=== PATIENT | male | born 1990 | race Caucasian/White ===

== ENCOUNTER 2019-05-24 10:45 | Emergency (ER) | payer OTHER, SELFPAY ==
--- NOTE | ~2019-05-24 | CT_ITS ---
EXAMINATION: CT abdomen pelvis wo con EXAM DATE: 05/24/2019 11:19 INDICATION: Left flank pain, nausea. History kidney stones. TECHNIQUE: Spiral CT of the abdomen and pelvis was performed without contrast. Axial, coronal and sag ittal images were reviewed. The dose-length product (DLP) for this examination was 762.50 mGy-cm. T he exposure was tailored according to patient size (auto mA exposure control), and iterative reconstr uction (ASIR) was used as additional dose reduction technique. There is no prior study for compariso n. FINDINGS: There is 5 mm right inferior calyceal stone. There is a 5 mm left ureteropelvic junction st one and a punctate left inferior calyceal stone. No hydronephrosis at present. The prostate is unrem arkable. The bladder is collapsed at time of imaging limiting evaluation. The liver, spleen, adrena l glands and pancreas are unremarkable. Gallbladder is unremarkable. No biliary obstruction. There is no retroperitoneal or pelvic lymphadenopathy. Small umbilical fat-containing hernia. The appendix is normal. The stomach and small bowel are unremarkable. There is expected amount of c olonic stool. No free intraperitoneal gas. The heart is normal in size. There are no pericardial or pleural effusions. The lung bases are unremarkable. The bones are unremarkable. IMPRESSION: 1. Left UPJ 5 mm stone, minimal adjacent inflammation. No hydronephrosis at present. 2. Bilateral nephrolithiasis. Urologist consultants would appreciate KUB as baseline for follow-up, treatment planning. Reviewed, dictated and finalized at location B. IMPRESSION: 1. Left UPJ 5 mm stone, minimal adjacent inflammation. No hydronephrosis at pr esent. 2. Bilateral nephrolithiasis. Urologist consultants would appreciate KUB as baseline for follow-up, treatment planning.
--- NOTE | ~2019-05-24 | XR_ITS ---
EXAMINATION: XR abdomen/kub 1V EXAM DATE: 05/24/2019 11:54 INDICATION: Left UPJ stone. TECHNIQUE: Frontal projection of the upper abdomen, frontal projection lower abdomen/pelvis for inter pretation. Correlation is made to CT same date FINDINGS: Left UPJ 5 mm stone identified, indicated. Similar sized right inferior calyceal stone fredy ntified. Probable identification of punctate left inferior calyceal stone. Nonobstructive bowel gas p attern. There are no osseous abnormalities identified. IMPRESSION: stones identified, indicated. Reviewed, dictated and finalized at location B.
[2019-05-24 10:50] VITALS: BP 145/94; PULSE 77; RESP 18; TEMP 36.6; O2SAT 100
--- NOTE | 2019-05-24 10:53 | ED.MALEGU ---
HPI - Male Genitourinary General Chief complaint: Urogenital-Male <Liliana Bullard PA-C - Last Filed: 05/24/19 13:43> Stated complaint: left flank pain <KATHY Tim Last Filed: 05/24/19 13:43> Time Seen by Provider: 05/24/19 10:49 <KATHY Tim Last Filed: 05/24/19 13:43> Source: patient <KATHY Tim Last Filed: 05/24/19 13:43> Mode of arrival: ambulatory <KATHY Tim Last Filed: 05/24/19 13:43> Limitations: no limitations <KATHY Tim Last Filed: 05/24/19 13:43> History of Present Illness HPI Narrative: A 28 y/o male pt presents to the ED, with c/o constant sharp, achy, lt sided ABD pain that began 30 minutes ago. Pt states he has a hx of kidney stones, and notes that this feels similar. He reports his pain being accompanied with nausea, hot flashes, and diaphoresis. Pt denies fever, back pain, dysuria, or hematuria. He notes seeing a urologist the last time he had a kidney stone, but states that he is unsure who he saw. Pt denies any urology procedures with his previous kidney stones, and notes that he was able to pass them on his own. He denies any significant PMHx, PSHx or any hx of smoking or drug use. Pt reports occasional alcohol use. <KATHY Tmi Last Filed: 05/24/19 13:43> MD Complaint: other (lt sided ABD pain) <KATHY Tim Last Filed: 05/24/19 13:43> Onset (ago): minute(s) (30) <KATHY Tim Last Filed: 05/24/19 13:43> Duration: constant <KATHY Tim Last Filed: 05/24/19 13:43> Location: abdomen (lt side) <KATHY Tim Last Filed: 05/24/19 13:43> Severity: similar to previous episodes <Liliana Bullard PA-C - Last Filed: 05/24/19 13:43> Context: other (hx of kidney stones) <Liliana Bullard PA-C - Last Filed: 05/24/19 13:43> Associated symptoms: Reports nausea/vomiting and other (diaphoresis, hot flashes) <Liliana Bullard PA-C - Last Filed: 05/24/19 13:43> Related Data Allergies/Adverse reactions: Allergies Allergy/AdvReac Type Severity Reaction Status Date / Time No Known Allergies Allergy Verified 05/24/19 10:59 <Liliana Bullard PA-C - Last Filed: 05/24/19 13:43> Review of Systems Review of Systems: All systems reviewed & are unremarkable except as noted in HPI and below <Liliana Bullard PA-C - Last Filed: 05/24/19 13:43> Constitutional: Constitutional: Reports excessive sweating, Denies fever(s) and Reports other (hot flashes) <Liliana Bullard PA-C - Last Filed: 05/24/19 13:43> Gastrointestinal: Gastrointestinal: Reports abdominal pain (lt sided) and Reports nausea <Liliana Bullard PA-C - Last Filed: 05/24/19 13:43> Genitourinary: Genitourinary: Denies hematuria and Denies dysuria <KATHY Tim Last Filed: 05/24/19 13:43> Musculoskeletal: Musculoskeletal: Denies back pain <Liliana Bullard PA-C Last Filed: 05/24/19 13:43> [facility] Past Medical History Medical History: Medical History Kidney stones <Liliana Bullard PA-C - Last Filed: 05/24/19 13:43> Surgical History Surgical History: Surgical History No significant past surgical history <Liliana Bullard PA-C - Last Filed: 05/24/19 13:43> Social History Social History: Social History Smoking status: Never smoker Alcohol intake: current Alcohol use details: occasional Substance use: never Gender identity (if verbalized by the patient): Male <Liliana Bullard PA-C - Last Filed: 05/24/19 13:43> Exam Narrative: Exam Narrative: GENERAL: Well-appearing, obese, and in no acute distress. HEAD: Normocephalic, atraumatic. EYES: EOMI. CHEST: Clear to auscultation. No respiratory distress. No wheezes rales or rhonchi HEA
[2019-05-24] MEDS: ONDANSETRON INJ 4 MG/2 ML VIAL IV PUSH (11:04)
[2019-05-24 11:05] LABS: Basophils Absolute Auto 0.1 K/mm3 (0.0-0.1); Basophils Percent Auto 0.6 % (0.2-1.2); Eosinophils Absolute Auto 0.3 K/mm3 (0-0.3); Hematocrit 43.4 % (42.0-52.0); Hemoglobin 14.9 g/dL (14.0-18.0); Immature Granulocyte Percent A 0.7 % (0-0.5); Lymphocytes Absolute Auto 4.51 K/mm3 (0.9-3.2); Lymphocytes Percent Auto 31.7 % (18.3-44.2); Mean Corpuscular HGB Conc 34.3 g/dl (32-36); Mean Corpuscular Hemoglobin 32.4 pg (26-34); Mean Corpuscular Volume 94.3 fl (80-100); Monocytes Absolute Auto 1.2 K/mm3 (0.1-0.6); Monocytes Percent Auto 8.7 % (2.6-8.5); Neutrophils Percent Auto 56.3 % (45.5-73.1); Platelet Count Result 463 k/mm3 (150-375); Red Cell Distribution Width 13.7 % (11.5-14.5); White Blood Count 14.2 K/mm3 (4.5-10.0)
[2019-05-24] MEDS: MORPHINE SULFATE 4 MG/ML INJ IV PUSH (11:05)
[2019-05-24] MEDS: SODIUM CHLORIDE 0.9% IV 1,000 ML 999 ML IV CONT (11:06)
--- NOTE | 2019-05-24 11:08 | PC.NURSE ---
Patient to CT
[2019-05-24 11:11] LABS: Add Urine Microscopic? YES; Appearance Urine Clear (Clear); Bacteria Urine Trace /hpf; Bilirubin Urine Negative (Negative); Blood Urine 3+ (Negative); Color Urine Yellow (Yellow); Glucose Urine UA Negative (Negative); Ketones Urine Negative (Negative); Leukocyte Esterase Ur Trace LEU/UL (Negative); Mucus Urine Heavy /lpf; Nitrate Urine Negative (Negative); Protein Urine 1+ mg/dL (Negative); RBC Urine >75 /hpf (0-2); Specific Grav Ur 1.028 (1.001-1.035); Squamous Epithelial Cell Urine Rare /hpf (Few); Urobilinogen Urine Negative mg/dL (<2.0)
[2019-05-24 11:18] LABS: Blood Urea Nitrogen 14 mg/dL (9-20); Calcium 9.4 mg/dL (8.4-10.2); Carbon Dioxide 24 mmol/L (22-30); Chloride 104 mmol/L (98-107); Estimated CRCL calculation 179 ml/min; Estimated Glomerular Filt Rate > 60; Glucose 115 mg/dL (75-110); Potassium 4.3 mmol/L (3.4-5.0); Sodium 138 mmol/L (137-145)
[2019-05-24] MEDS: HYDROMORPHONE HCL 1 MG/ML INJ 0.5 MG IV PUSH ×2 (11:34→12:12)
--- NOTE | 2019-05-24 13:16 | WPDURCON ---
Assessment and Plan Assessment and plan (1) Left ureteral calculus: Code(s): N20.1 - Calculus of ureter Status: Acute Assessment and Plan: Left UPJ calculus. Have offered him multiple options of conservative therapy with narcotics and Flomax although he is having a difficult time controlling his pain. The stone is visible and KUB in this lithotripsy may be the best option at this point time. We are looking into insurance coverage of whether can be done as an outpatient. Have also offered a stent placement later today. Patient has a sister who is a nurse at [facility] and would like to have his care to undertaken at that facility. He will let us know what he decides and wants us to do. Urology Consult Note HPI Date Seen: 05/24/19 Time Seen: 13:16 Primary Care Provider: UNKNOWN,DOCTOR Consult Narrative Reason for consult: 5 mm left UPJ calculus Narrative: Simba Maharaj is a 28 year old male who presented to the emergency room with left renal colic. He denies any fevers chills. No other voiding symptoms and no gross hematuria. Evaluation in the emergency room with a CT scan revealed a 5 mm left UPJ calculus. He has some smaller calcifications present in both kidneys also. He was requiring quite a bit of Dilaudid and morphine to get his pain under control. At the time of my evaluation he was resting comfortably. The stone is visible on KUB. Urinalysis has 7-9 white cells. Nitrate negative trace leukocyte esterase. Review of Systems Review of Systems: All systems reviewed & are unremarkable except as noted in HPI and below PMFSH Past Medical History Medical History Kidney stones Surgical History Surgical History No significant past surgical history Social History Social History Smoking status: Never smoker Alcohol intake: current Alcohol use details: occasional Substance use: never Gender identity (if verbalized by the patient): Male Meds Home Medications and Allergies Home Medications Medication Instructions Recorded Confirmed Type No Home Medications 05/24/19 05/24/19 History Allergies Allergy/AdvReac Type Severity Reaction Status Date / Time No Known Allergies Allergy Verified 05/24/19 10:59 Vital Signs Vital Signs - 24 hr 05/24/19 10:50 Temperature 36.6 C Pulse Rate 77 Respiratory Rate 18 Blood Pressure 145/94 H Pulse Oximetry 100 Exam Const: General: uncomfortable HENMT: General nose exam: Normal nares present Eyes: EOM: EOMs intact bilaterally Resp: Effort & Inspection: normal respiratory effort Cardio: Rhythm: regular rhythm Neuro: Speech: normal speech Results Labs CBC & Chem 7: 05/24/19 10:59 05/24/19 10:59 Labs: Short CBC 05/24/19 Range/Units 10:59 WBC 14.2 H (4.5-10.0) K/mm3 Hgb 14.9 (14.0-18.0) g/dL Hct 43.4 (42.0-52.0) % Plt Count 463 H (150-375) k/mm3 BMP 05/24/19 10:59 Sodium 138 Potassium 4.3 Chloride 104 Carbon Dioxide 24 BUN 14 Creatinine 0.70 Glucose 115 H Calcium 9.4 Urine 05/24/19 Range/Units 10:58 Urine Color Yellow (Yellow) Urine Appearance Clear (Clear) Urine pH 5.0 (5.0-9.0) Ur Specific Stephenson 1.028 (1.001-1.035) Urine Protein 1+ H (Negative) mg/dL Urine Glucose (UA) Negative (Negative) mg/dL
[2019-05-24 14:14] VITALS: BP 138/84; PULSE 83; RESP 19; O2SAT 97
== END 2019-05-24 14:23 | disposition home or self-care (01) ==
PROVIDERS: Physician Assistant; Emergency Provider General Practice
DX: N20.1 Calculus of ureter (principal); Z87.442 Personal history of urinary calculi
CPT/HCPCS: 36415; 74018; 74176; 80048; 81001; 85025; 87086; 96365; 96367; 96375; 96376; 99284; A9270; J0131; J0696; J1170; J2270; J2405; J7030